=== PATIENT | male | born 1990 | race Caucasian/White ===

== ENCOUNTER → 2019-02-13 | Outpatient (CLI) | payer OTHER, SELFPAY | PROVIDERS: Family Provider Nurse Practitioner Family | DX: M25.571 Pain in right ankle and joints of right foot (principal); R60.0 Localized edema; S93.04XA Dislocation of right ankle joint, initial encounter; X58.XXXA Exposure to other specified factors, initial encounter ==

== ENCOUNTER → 2019-02-22 09:02 | Outpatient (BNVA) | payer OTHER, SELFPAY | PROVIDERS: Family Provider Nurse Practitioner Family; PCP Nurse Practitioner Family; Referring Provider Nurse Practitioner Family; Visit Provider Specialist | DX: M25.579 Pain in unspecified ankle and joints of unspecified foot (principal) | CPT/HCPCS: 73610 ==

== ENCOUNTER 2019-02-22 14:40 | Outpatient (CLI) | payer OTHER, SELFPAY | END 2019-02-22 14:41 | disposition home or self-care (01) | LOC: SPT 14:40 | PROVIDERS: Family Provider Nurse Practitioner Family; PCP Nurse Practitioner Family; Visit Provider Specialist | DX: M25.571 Pain in right ankle and joints of right foot (principal) | CPT/HCPCS: L1902 ==

== ENCOUNTER 2019-02-27 16:08 | Outpatient (RCR) | payer OTHER, SELFPAY | END 2019-03-17 23:59 | disposition home or self-care (01) | LOC: SPT 16:08 | PROVIDERS: Family Provider Nurse Practitioner Family; PCP Nurse Practitioner Family; Referring Provider Specialist; Visit Provider Specialist | DX: S93.401D Sprain of unspecified ligament of right ankle, subsequent encounter (principal); X58.XXXD Exposure to other specified factors, subsequent encounter | CPT/HCPCS: 97110; 97161 ==

== ENCOUNTER 2019-03-18 06:00 | Outpatient (RCR) | payer OTHER, SELFPAY | END 2019-04-15 23:59 | disposition home or self-care (01) | LOC: SPT 06:00 | PROVIDERS: Family Provider Nurse Practitioner Family; PCP Nurse Practitioner Family; Referring Provider Specialist; Visit Provider Specialist | DX: S93.401D Sprain of unspecified ligament of right ankle, subsequent encounter (principal); X58.XXXD Exposure to other specified factors, subsequent encounter | CPT/HCPCS: 97110 ==

== ENCOUNTER 2019-04-16 06:00 | Outpatient (RCR) | payer OTHER, SELFPAY | END 2019-04-16 23:00 | disposition home or self-care (01) | LOC: SPT 06:00 | PROVIDERS: Family Provider Nurse Practitioner Family; PCP Nurse Practitioner Family; Referring Provider Specialist; Visit Provider Specialist | DX: Z01.89 Encounter for other specified special examinations (principal) ==

== ENCOUNTER 2019-09-28 20:22 | Emergency (ER) | payer BC, SELFPAY ==
[2019-09-28 20:30] VITALS: BP 123/71; PULSE 90; RESP 17; TEMP 36.9; O2SAT 98; BMI 28.1
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
[2019-09-28 21:43] VITALS: BP 137/76; PULSE 82; RESP 16; O2SAT 98
[2019-09-28] MEDS: tetanus-diphtheria tox (adult) 0.5 mL SDV IM (21:50)
[2019-09-28] MEDS: lidocaine 2% INJ 20 mL INJECTION (21:55)
[2019-09-28 22:37] VITALS: BP 126/80; PULSE 82; RESP 18; O2SAT 98
== END 2019-09-28 22:25 | disposition home or self-care (01) ==
PROVIDERS: Emergency Provider Physician Assistant; PCP Nurse Practitioner Family
DX: S61.245A Puncture wound with foreign body of left ring finger without damage to nail, initial encounter (principal); W26.8XXA Contact with other sharp object(s), not elsewhere classified, initial encounter; Z23 Encounter for immunization
CPT/HCPCS: 12345; 90471; 90714; 99281; 99282

== ENCOUNTER 2020-10-21 20:11 | Emergency (ER) | payer BC, SELFPAY ==
[2020-10-21 20:26] VITALS: BP 117/76; PULSE 97; RESP 24; TEMP 36.7; O2SAT 98; BMI 28.1
--- NOTE | 2020-10-21 20:28 | XRR_ITS ---
PROCEDURE INFORMATION: Exam: XR Chest Exam date and time: 10/21/2020 8:28 PM Age: 30 years old Clinical indication: Shortness of breath; Additional info: SOB post second covid vaccine TECHNIQUE: Imaging protocol: XR of the chest. Views: 2 views. COMPARISON: CR Chest 2 views* [id number] 03/15/2014 11:02 AM FINDINGS: Lungs: Unremarkable. No consolidation. Pleural spaces: Unremarkable. No pleural effusion. No pneumothorax. Heart/Mediastinum: Unremarkable. No cardiomegaly. Bones/joints: Unremarkable. XR/XR chest 2V* [id number] IMPRESSION: No acute findings.
--- NOTE | 2020-10-21 20:28 | ECG_ITS ---
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 Measurements Intervals [place] Rate: 93 P: 71 [place]: 139 QRS: 77 QRSD: 80 T: 57 QT: 318 QTc: 396 Interpretive Statements SINUS RHYTHM Compared to ECG 03/15/2014 10:57:17 No significant changes Electronically Signed On 10-24-2020 9:07:31 CDT by Marlen Higuera M.D. [email or web address]
[2020-10-21 23:29] VITALS: BP 122/82; PULSE 78; RESP 16; O2SAT 98
--- NOTE | 2020-10-21 23:52 | W.ED.SOB ---
HPI - SOB/Dyspnea General: Chief Complaint: Shortness of Breath/Dyspnea Stated Complaint: SOB post second dose of vaccine Time Seen by Provider: 10/21/20 23:48 Source: patient Mode of arrival: ambulatory Limitations: no limitations History of Present Illness: HPI Narrative: 30-year-old male states that he received his second dose of motor and a Covid vaccine on Wednesday. He states that starting yesterday and earlier today he is having body aches along with general malaise and some shortness of breath. He denies any cough denies any fever but felt febrile. He states that actually over the last hour or 2 hours his symptoms have resolved and he feels much better. He has no complaints at this time. Denies any worsening improving factors. Associated symptoms: Deny abdominal pain, chest pain, nausea or vomiting Review of Systems Const: Reports: chills and body aches Eyes: Denies: blurry vision or eye discomfort ENMT: Denies: throat pain or dental pain Card: Denies: chest pain Resp: Reports: dyspnea GI: Denies: abdominal pain, nausea, vomiting or diarrhea : Denies: dysuria Musc: Denies: neck pain or back pain Skin/Breast: Denies: rash Neuro: Denies: headache(s) Psych: Denies: depression Scar/Lymph: Denies: easy bruising All/Imm: Denies: urticaria [facility] ED PFSH: Medical History (Updated 10/21/20 @ 23:54 by Tyshawn Murrell MD) Closed avulsion fracture of medial malleolus of right tibia Sprain of ligament of right ankle Physical Exam Const: COMMON NORMALS: no acute distress, patient oriented x3 and healthy appearing HENMT: COMMON NORMALS: normocephalic and atraumatic HEAD & SCALP: normocephalic and atraumatic Eye: COMMON NORMALS: Equal, round and reactive pupils present and EOMs intact bilaterally PUPIL: Yes Equal, round and reactive pupils present Neck/C-Spine: COMMON NORMALS: full ROM and supple Chest: COMMONS NORMALS: normal inspection of the chest and normal palpation of entire chest wall Resp: COMMON NORMALS: normal respiratory effort, No retractions, No use of accessory muscles and clear to auscultation bilaterally AUSCULTATION: clear to auscultation bilaterally Cardio: COMMON NORMALS: regular rate, regular rhythm and No murmurs present (Cardio) RATE: regular rate RHYTHM: regular rhythm GI: COMMON NORMALS: Normal to inspection, nondistended, normoactive bowel sounds present, Soft to palpation, non-tender and no masses PALPATION: Yes Soft to palpation Extremity: COMMON NORMALS: normal to inspection and full ROM Neuro: COMMON NORMALS: patient oriented x3, moves all extremities and no focal motor deficits Psych: COMMON NORMALS: mental status grossly normal, Normal thought process present and cooperative THOUGHT PROCESS: Normal thought process present Skin: COMMON NORMALS: no rashes or lesions noted and no wounds GENERAL SKIN EXAM: no rashes or lesions noted Course Vital Signs: Vital signs: Vital Signs Temperature 98.1 F 10/21/20 20:26 Pulse Rate 97 10/21/20 20:26 Respiratory Rate 24 H 10/21/20 20:26 Blood Pressure 117/76 10/21/20 20:26 Pulse Oximetry 98 10/21/20 20:26 MDM - SOB/Dyspnea MDM Narrative: Medical decision making narrative: Patient presents with body aches, dyspnea after his second dose of [place]ater[place] vaccine. Patient states that he was feeling unwell earlier today and on Wednesday states that actually now symptoms of all resolved. He states he does not feel short of breath has no pain no fever. EKG and x-ray here are normal. I feel he needs no lab work since his symptoms are resolved and he is stable for discharge and return if worsening. Imaging Data^: CXR: Radiologist's impression: [address] [address] XRay Report Signed Patient: Dago Us Unit #: [id number] : 1990 Age/Sex: 30 / M ADM Date: 10/21/20 Loc: ER Room/Bed: Attending Dr: Ordering Provider/Ordering MD: Tyshawn Murrell MD Date of Service: 10/21/20 Procedure(s): XR chest 2V* [id number] Accession Number(s): [id number] Report Number: [id number] PROCEDURE INFORMATION: Exam: XR Chest Exam date and time: 10/21/2020 8:28 PM Age: 30 years old Clinical indication: Shortness of breath; Additional info: SOB post second covid vaccine TECHNIQUE: Imaging protocol: XR of the chest. Views: 2 views. COMPARISON: CR Chest 2 views* [id number] 03/15/2014 11:02 AM FINDINGS: Lungs: Unremarkable. No consolidation. Pleural spaces: Unremarkable. No pleural effusion. No pneumothorax. Heart/Mediastinum: Unremarkable. No cardiomegaly. Bones/joints: Unremarkable. XR/XR chest 2V* [id number] IMPRESSION: No acute findings. Dictated By: Aftab Davey MD Signed By: Aftab Davey MD Signed Date/Time: 10/21/20 2100 EKG Data^: EKG 1: Attestation: I personally reviewed and interpreted this EKG as follows: EKG Interpretation Date: 10/21/20 EKG interpretation time: 20:35 Interpretation: nsr hr [address] or t wave abnormalities qrs 80 qtc 369 Discharge Plan Discharge Patient Disposition: Home Clinical Impression: Body aches after vaccination Dyspnea Qualifiers: Dyspnea type: unspecified Qualified Code(s): R06.00 - Dyspnea, unspecified Condition: Stable Prescriptions: No Action Collette Back and Body 500-32.5 mg Tablet 2 tab PO PRN RF: 0 Discharge Orders: Discharge ED (Routine); Ordered 10/21/20 Ordered By: Tyshawn Murrell Discharge Diet: Advance as tolerated Discharge Activity: Resume usual activity Patient Instructions: Dyspnea (ED), Opioid Safety Coding Level of Care Code ED Health Administrator for Chg Fwd Exam Comprehensive
[2020-10-22 00:36] VITALS: BP 121/71; PULSE 69; RESP 20; O2SAT 99
== END 2020-10-22 00:32 | disposition home or self-care (01) ==
PROVIDERS: Emergency Provider Emergency Medicine
DX: R06.00 Dyspnea, unspecified (principal); R52 Pain, unspecified; T50.B95A Adverse effect of other viral vaccines, initial encounter
CPT/HCPCS: 71046; 93005; 99282

== ENCOUNTER → 2020-10-22 15:33 | Outpatient (BNVA) | payer BC, SELFPAY | PROVIDERS: Visit Provider Nurse Practitioner Family | DX: Z20.822 Contact with and (suspected) exposure to COVID-19 (principal) | CPT/HCPCS: 87635 ==

== ENCOUNTER → 2021-03-10 19:08 | Outpatient (BNVA) | payer BC, SELFPAY | PROVIDERS: Visit Provider Registered Nurse Neonatal Intensive Care | DX: Z20.822 Contact with and (suspected) exposure to COVID-19 (principal) | CPT/HCPCS: 87635 ==

== ENCOUNTER → 2021-03-13 17:14 | Outpatient (BNVA) | payer BC, SELFPAY | PROVIDERS: Visit Provider Nurse Practitioner | DX: J02.9 Acute pharyngitis, unspecified (principal) | CPT/HCPCS: 87880 ==

== ENCOUNTER 2022-09-08 19:13 | Emergency (ER) | payer SELFPAY ==
[2022-09-08 19:46] VITALS: PULSE 109; RESP 16; TEMP 36.6; O2SAT 96; BMI 26.6
[2022-09-08] MEDS: tetracaine 0.5% Op Soln 4 mL Btl 1 DROP EYE-BOTH (20:56)
--- NOTE | 2022-09-08 21:02 | ED_ITS ---
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 Patient admits he believes he has Welders burn. Patient appears in mild to moderate discomfort. Patient appears nontoxic. Patient reports no other medical problems. Patient reports tetanus is up-to-date. Associated symptoms: Denies fever(s) Review of Systems Const: Denies: fever(s) Eyes: Reports: eye discomfort [facility] ED PFSH: Medical History (Updated 09/08/22 @ 21:04 by CAT Hernandez) Acute bronchitis and bronchiolitis Closed avulsion fracture of medial malleolus of right tibia Smoker Sprain of ligament of right ankle Family History (Updated 02/10/22 @ 09:27 by Janie Andrea LPN) Father No problems noted. Mother Cancer Social History (Updated 02/10/22 @ 09:27 by Janie Andrea LPN) Smoking and tobacco status: current every day smoker cigarettes Quit status (tobacco): not considering quitting Second hand smoke exposure: No Smoking risk assessment/counseling performed?: No Alcohol intake: current Alcohol intake frequency: holidays/special occasions only Alcohol type: hard liquor Desire information about alcohol rehabilitation?: No Counseling given: No Substance/Drug Use: never Desire information about substance/drug rehabilitation?: No Counseling given: No Physical Exam Const: COMMON NORMALS: alert HENMT: COMMON NORMALS: normocephalic HEAD & SCALP: normocephalic Eye: COMMON NORMALS: Equal, round and reactive pupils present VISUAL ACUITY: Yes acuity normal CONJUNCTIVA: Yes conjunctival abnormal positive bilateral conjunctival injection SCLERA: scleral abnormal Laterality of scleral abnormality: positive bilateral scleral injection CORNEA: Yes corneas normal PUPIL: Yes Equal, round and reactive pupils present EOM: Yes EOM abnormal Resp: COMMON NORMALS: normal respiratory effort Cardio: COMMON NORMALS: regular rate RATE: regular rate Extremity: COMMON NORMALS: full ROM Neuro: SENSORIUM/ORIENTATION: Yes alert Skin: COMMON NORMALS: turgor normal GENERAL SKIN EXAM: turgor normal Course Vital Signs: Vital signs: Vital Signs Temperature 97.9 F 09/08/22 19:46 Pulse Rate 109 H 09/08/22 19:46 Respiratory Rate 16 09/08/22 19:46 Pulse Oximetry 96 09/08/22 19:46 Oxygen Delivery Me thod Room Air 09/08/22 19:46 MDM - Eye Problem Medical Decision Making 32-year-old male patient comes in today with complaints of Welders burn to the eyes. On exam patient has normal cornea with injection of the conjunctiva and sclera. Patient was administered tetracaine drops with relief of pain and discomfort. Differential diagnosis includes Welders keratitis, foreign body, corneal abrasion. No signs of severe injury is noted. Patient will be maintained pain control with tetracaine for the next 48 hours, and patient was started on TobraDex eyedrops for recovery and healing. Patient reported understanding of care plan and need for follow-up or return to the ER. Discharge Plan Discharge Patient Disposition: Home Clinical Impression: Welders' keratitis of both eyes Condition: Stable Prescriptions: No Action azithromycin 250 mg tablet See Rx Instructions PO .COMPLEX Qty: 6 0RF Rx Instructions: For 250 mg dose pack: take 500 mg today (day 1), then 250 mg for 4 days (days 2-5) PO benzonatate 200 mg capsule 200 mg PO TID PRN (Reason: cough) Qty: 20 0RF chlorpheniramine-dextromethorp 4-30 mg tablet 1 tab PO Q6H PRN (Reason: cough) Qty: 20 0RF fluticasone propionate [Flonase Allergy Relief] 50 mcg/actuation spray,suspension 2 spray intranasal BID Qty: 16 0RF Rx Instructions: administer into each nostril Discharge Orders: Discharge ED (Routine); Ordered 09/08/22 Ordered By: Prasanth Rogel Discharge Diet: Usual diet Discharge Activity: Increase activity as tolerated Patient Instructions: Corneal Flash Smith (ED) Activity Restrictions/Additional Instructions: Use pain eyedrops 1 drop every 1-3 hours as needed for pain. Do not use the pain drops for longer than 2 days. Use antibiotic with steroid eyedrops 2 drops to both eyes 4 times a day while awake. Use antibiotic eyedrops for at least 5 days. Follow-up with primary care in 2 to 3 days for recheck. Return to ED for new concerns. Coding Level of Care Code ED Market Risk Manager for Ajay Odonnell
[2022-09-08] MEDS: tobramycin-dexametha Op Susp 5 mL Btl 2 DROP EYE-BOTH (21:22)
== END 2022-09-08 21:27 | disposition home or self-care (01) ==
PROVIDERS: Emergency Provider Nurse Practitioner Family
DX: H16.133 Photokeratitis, bilateral (principal); W89.8XXA Exposure to other man-made visible and ultraviolet light, initial encounter; F17.210 Nicotine dependence, cigarettes, uncomplicated
CPT/HCPCS: 99283

== ENCOUNTER 2024-02-04 13:23 | Emergency (ER) | payer SELFPAY ==
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
[2024-02-04 14:39] VITALS: BP 142/84; PULSE 71; RESP 17; TEMP 36.9; O2SAT 100; BMI 28.1
--- NOTE | 2024-02-04 14:46 | XRR_ITS ---
PROCEDURE INFORMATION: Exam: XR Cervical Spine Exam date and time: 02/04/2024 2:52 PM Age: 33 years old Clinical indication: Neck pain TECHNIQUE: Imaging protocol: Radiologic exam of the cervical spine. Views: 2 or 3 views. COMPARISON: CR XR chest 2V* [id number] 10/21/2020 8:47 PM FINDINGS: Bones/joints: Normal anatomic alignment. Vertebral body heights are well preserved. Preserved intervertebral disc spaces. The spinal canal is patent. Atlantoaxial articulation is normal. No acutely displaced fractures. No joint dislocation. No aggressive osseous lesions. Soft tissues: The prevertebral soft tissues are normal. No acute soft tissue findings. Airway: Airways are patent. Lungs: The visualized portions of the lung apices are normal. XR/XR cervical spine 3V* [id number] IMPRESSION: No acute fracture or dislocation.
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
[2024-02-04 16:05] LABS: Basophils # 0.1 10^3/uL (0.0-0.1); Basophils % 0.9 %; Eosinophils # 0.4 10^3/uL (0.0-0.8); Eosinophils % 5.1 %; Hematocrit 46.8 % (37-53); Lymphocytes # 3.4 10^3/uL (0.8-4.8); Lymphocytes % 39.6 %; Mean Corpuscular HGB Conc 34.2 g/dL (30-55); Mean Corpuscular Hemoglobin 30.1 pg (27-33); Mean Corpuscular Volume 88.1 fl (82-101); Mean Platelet Volume 10.4 fL (7.4-10.4); Monocytes # 0.5 10^3/uL (0.2-0.9); Monocytes % 5.9 %; Neutrophils # 4.16 10^3/uL (1.8-7.7); Neutrophils % 48.3 %; Nucleated Red Blood Cells % 0 %; Platelet Count 262 10^3/cmm (157-399); Red Blood Count 5.31 10^6/uL (3.85-5.65); Red Cell Distribution Width 12.2 % (12.1-15.1); White Blood Count 8.63 10^3/uL (3.29-11.43)
[2024-02-04 16:19] LABS: Alanine Aminotransferase 33 U/L (0-41); Albumin Level 4.4 g/dL (3.5-5.2); Alkaline Phosphatase 114 U/L (40-130); Anion Gap 17.2 (5-19); Aspartate Amino Transferase 26 U/L (0-40); Blood Urea Nitrogen 12 mg/dL (6-20); Calcium 9.1 mg/dL (8.5-10.5); Carbon Dioxide 23 mmol/L (22-29); Chloride 103 mmol/L (98-107); Creatinine Clr Calc Pharmacy 119.4153; Globulin 2.4 g/dL (1.3-4.6); Glomerular Filtration Rate 97.2 mL/min (90-130); Glucose 88 mg/dL (65-115); Osmolality Calculated 287 mOsm/kg (285-295); Potassium 4.2 mmol/L (3.5-5.1); Sodium 139 mmol/L (136-145); Total Bilirubin 0.6 mg/dL (0.15-1.2); Total Protein 6.8 g/dL (6.6-8.7)
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
[2024-02-04 18:14] VITALS: BP 131/87; PULSE 87; O2SAT 100
== END 2024-02-04 18:14 | disposition home or self-care (01) ==
PROVIDERS: Family Medicine; Emergency Provider Emergency Medicine
DX: M79.18 Myalgia, other site (principal); V89.2XXA Person injured in unspecified motor-vehicle accident, traffic, initial encounter; F17.210 Nicotine dependence, cigarettes, uncomplicated
CPT/HCPCS: 72040; 73130; 80053; 85025; 99284

== ENCOUNTER 2024-06-27 19:34 | Emergency (ER) | payer SELFPAY ==
--- NOTE | 2024-06-27 19:34 | XRR_ITS ---
PROCEDURE INFORMATION: Exam: XR Left Hand Exam date and time: 06/27/2024 7:41 PM Age: 33 years old Clinical indication: Pain; Finger(s); Left; Additional info: Injury TECHNIQUE: Imaging protocol: Radiologic exam of the left hand. Views: 3 or more views. COMPARISON: No relevant prior studies available. FINDINGS: Bones/joints: No definite acute fracture or dislocation. Soft tissues: Linear radiopaque density likely related to a foreign body within the palmar and lateral aspect of the soft tissues adjacent to the 2nd proximal phalanx. Overlying soft tissue swelling. XR/XR hand LT min 3V* [id number] IMPRESSION: As above.
[2024-06-27 19:35] VITALS: BP 143/87; PULSE 76; RESP 16; TEMP 36.3; O2SAT 99; BMI 28.1
--- NOTE | 2024-06-27 20:14 | W.ED.EXTPRO ---
HPI - Extremity Problem General: Chief complaint: Extremity Injury, Upper Stated complaint: L index finger pain Time Seen by Provider: 06/27/24 20:01 Source: patient Mode of arrival: ambulatory Limitations: no limitations History of Present Illness: 33-year-old male states he had injured his finger with a precision jig grinder 2 years ago he saw his had some swelling at the point of his had increased swelling and redness over the last few days he has some slight pain denies any drainage denies any worse improving factors. Associated symptoms: Deny chest pain, fever(s) or rash Related Data Previous Rx's ?Medication ?Instructions ?Recorded azithromycin 250 mg tablet See Rx Instructions PO .COMPLEX #6 02/10/22 tabs benzonatate 200 mg capsule 200 mg PO TID PRN cough #20 caps 02/10/22 chlorpheniramine-dextromethorphan 1 tab PO Q6H PRN cough #20 tabs 02/10/22 4 mg-30 mg tablet fluticasone propionate 50 2 spray intranasal BID #16 grams 02/10/22 mcg/actuation nasal spray,suspension (Flonase Allergy Relief) sulfamethoxazole 800 1 tab PO BID 10 days #20 tabs 06/27/24 mg-trimethoprim 160 mg tablet (Bactrim DS) Allergies Allergy/AdvReac Type Severity Reaction Status Date / Time No Known Allergies Allergy Verified 09/08/22 19:46 Review of Systems Const: Denies: fever(s), chills, body aches or change in appetite ENMT: Denies: throat pain or dental pain Card: Denies: chest pain Resp: Denies: dyspnea GI: Denies: abdominal pain, nausea, vomiting or diarrhea Musc: Reports: extremity pain; Denies: neck pain or back pain Skin/Breast: Denies: rash Neuro: Denies: headache(s) PFSH ED PFSH: Medical History Smoker Acute bronchitis and bronchiolitis Closed avulsion fracture of medial malleolus of right tibia Sprain of ligament of right ankle Family History Father No problems noted. Mother Cancer Social History Smoking and tobacco/nicotine status: current every day tobacco/nicotine user cigarettes Quit status (tobacco/nicotine): not considering quitting Second hand smoke exposure: No Alcohol intake: current Alcohol intake frequency: holidays/special occasions only Alcohol type: hard liquor Substance/Drug Use: never Physical Exam Const: COMMON NORMALS: no acute distress, patient oriented x3 and healthy appearing HENMT: COMMON NORMALS: normocephalic and atraumatic HEAD & SCALP: normocephalic and atraumatic Eye: COMMON NORMALS: conjunctivae normal CONJUNCTIVA: Yes conjunctivae normal Neck/C-Spine: COMMON NORMALS: full ROM and supple Chest: COMMONS NORMALS: normal inspection of the chest Extremity: COMMON NORMALS: full ROM Neuro: COMMON NORMALS: patient oriented x3, moves all extremities and no focal motor deficits Psych: COMMON NORMALS: mental status grossly normal, Normal thought process present and cooperative THOUGHT PROCESS: Normal thought process present Skin: COMMON NORMALS: no rashes or lesions noted NARRATIVE SKIN EXAM: Swelling over the PIP joint of radial aspect of index finger with likely abscess GENERAL SKIN EXAM: no rashes or lesions noted Procedures Abscess I/D Site: hand Side (if applicable): left Local Anesthetic: bupivacaine 0.5% Amount of anesthesia used (mL): 10 Technique: incised with #11 blade Packing used?: none Course Vital Signs: Vital signs: Vital Signs Temperature 97.4 F L 06/27/24 19:35 Pulse Rate 76 06/27/24 19:35 Respiratory Rate 16 06/27/24 19:35 Blood Pressure 143/87 06/27/24 19:35 Pulse Oximetry 99 06/27/24 19:35 Oxygen Delivery Me thod Room Air 06/27/24 19:35 MDM - Extremity (Nontraumatic) Medical Decision Making Patient presents for an abscess to his index finger did incise and drain the abscess with some purulent drainage she does have foreign body noted on the x-ray was not able to remove the foreign body will give him follow-up orthopedics will start him on antibiotics. All radiology interpretation(s) finalized by discharge Discharge Plan Discharge Patient Disposition: Home Clinical Impression: Abscess, Foreign body finger Condition: Stable Prescriptions: New sulfamethoxazole-trimethoprim [Bactrim DS] 800-160 mg tablet 1 tab PO BID 10 Days Qty: 20 0RF No Action azithromycin 250 mg tablet See Rx Instructions PO .COMPLEX Qty: 6 0RF Rx Instructions: For 250 mg dose pack: take 500 mg today (day 1), then 250 mg for 4 days (days 2-5) PO benzonatate 200 mg capsule 200 mg PO TID PRN (Reason: cough) Qty: 20 0RF chlorpheniramine-dextromethorp 4-30 mg tablet 1 tab PO Q6H PRN (Reason: cough) Qty: 20 0RF fluticasone propionate [Flonase Allergy Relief] 50 mcg/actuation spray,suspension 2 spray intranasal BID Qty: 16 0RF Rx Instructions: administer into each nostril Discharge Orders: Discharge ED (Routine); Ordered 06/27/24 Ordered By: Tyshawn Murrell Discharge Diet: Advance as tolerated Discharge Activity: Resume usual activity Patient Instructions: Soft Tissue Foreign Body (ED), Abscess (ED) Print Language: Yakut Coding Level of Care Code ED Security Supervisor for Ajay Odonnell
--- NOTE | 2024-06-28 07:23 | DCPLANNER ---
Message sent to Ortho for referral-Patient presents for an abscess to his index finger did incise and drain the abscess with some purulent drainage she does have foreign body noted on the x-ray was not able to remove the foreign body will give him follow-up orthopedics will start him on antibiotics. All radiology interpretation(s) finalized by discharge
== END 2024-06-27 20:26 | disposition home or self-care (01) ==
PROVIDERS: Emergency Provider Emergency Medicine
DX: L02.512 Cutaneous abscess of left hand (principal); S60.451A Superficial foreign body of left index finger, initial encounter; X58.XXXA Exposure to other specified factors, initial encounter; F17.210 Nicotine dependence, cigarettes, uncomplicated
CPT/HCPCS: 26010; 73130; 99284; 99291

== ENCOUNTER 2024-07-23 10:05 | Emergency (ER) | payer SELFPAY ==
[2024-07-23 10:18] VITALS: BP 125/78; PULSE 105; RESP 17; TEMP 36.7; O2SAT 97; BMI 29.0
[2024-07-23 11:12] VITALS: BP 127/81; PULSE 91; RESP 18; O2SAT 99
--- NOTE | 2024-07-23 11:17 | ED_ITS ---
HPI - Back Pain/Injury General: Chief Complaint: Back Pain/Injury Stated Complaint: back pain Time Seen by Provider: 07/23/24 11:07 Source: patient Mode of arrival: ambulatory Limitations: no limitations History of Present Illness: 33-year-old who has a history of back is sues in the past and over the last few days been having right lower back pain. States pain is progressively worsens currently an 8 out of 10 much worse with movement denies any bowel or bladder incontinence. Denies any specific injury Associated symptoms: Deny abdominal pain, chills, fever(s), nausea or vomiting Related Data Previous Rx's ?Medication ?Instructions ?Recorded azithromycin 250 mg tablet See Rx Instructions PO .COM PLEX #6 02/10/22 tabs benzonatate 200 mg capsule 200 mg PO TID PRN cough #20 caps 02/10/22 chlorpheniramine-dextromethorphan 1 tab PO Q6H PRN cou gh #20 tabs 02/10/22 4 mg-30 mg tablet fluticasone propionate 50 2 spray intranasal BID #16 g amarilis 02/10/22 mcg/actuation nasal spray,suspension (Flonase Allergy Relief) methocarbamol 750 mg tablet 750 mg PO Q6H PRN spasms # 20 tabs 07/23/24 naproxen 500 mg tablet (Naprosyn) 500 mg PO BID PRN pa in #20 tabs 07/23/24 Allergies Allergy/AdvReac Type Severity Reaction Status Date / Time No Known Allergies Allergy Verified 06/29/24 11:33 Review of Systems Const: Denies: fever(s), chills, body aches or change in appetite ENMT: Denies: throat pain or dental pain Card: Denies: chest pain Resp: Denies: dyspnea GI: Denies: abdominal pain, nausea, vomiting or diarrhea Musc: Reports: back pain; Denies: neck pain Skin/Breast: Denies: rash Neuro: Denies: headache(s) PFSH ED PFSH: Medical History Smoker Acute bronchitis and bronchiolitis Closed avulsion fracture of medial malleolus of right tibia Sprain of ligament of right ankle Family History Father No problems noted. Mother Cancer Social History Smoking and tobacco/nicotine status: current every day tobacco/nicotine user cigarettes Quit status (tobacco/nicotine): not considering quitting Second hand smoke exposure: No Alcohol intake: current Alcohol intake frequency: holidays/special occasions only Alcohol type: hard liquor Substance/Drug Use: never Physical Exam Const: COMMON NORMALS: no acute distress, patient oriented x3 and healthy appearing HENMT: COMMON NORMALS: normocephalic and atraumatic HEAD & SCALP: normocephalic and atraumatic Eye: COMMON NORMALS: conjunctivae normal CONJUNCTIVA: Yes conjunctivae normal Neck/C-Spine: COMMON NORMALS: full ROM and supple Chest: COMMONS NORMALS: normal inspection of the chest Resp: COMMON NORMALS: normal respiratory effort Cardio: COMMON NORMALS: regular rate RATE: regular rate GI: COMMON NORMALS: Normal to inspection, nondistended, normoactive bowel sounds present, Soft to palpation, non-tender and no masses PALPATION: Yes Soft to palpation Back/Pelvis: OTHER: Tenderness to right lower back no midline tenderness no saddle anesthesia Extremity: COMMON NORMALS: normal to inspection and full ROM Neuro: COMMON NORMALS: patient oriented x3, moves all extremities and no focal motor deficits Psych: COMMON NORMALS: mental status grossly normal, Normal thought process present and cooperative THOUGHT PROCESS: Normal thought process present Skin: COMMON NORMALS: no rashes or lesions noted and no wounds GENERAL SKIN EXAM: no rashes or lesions noted Course Vital Signs: Vital signs: Vital Signs Temperature 98.0 F 07/23/24 10:18 Pulse Rate 91 07/23/24 11:12 Respiratory Rate 18 07/23/24 11:12 Blood Pressure 127/81 07/23/24 11:12 Pulse Oximetry 99 07/23/24 11:12 Oxygen Delivery Me thod Room Air 07/23/24 11:12 MDM - Back Pain/Injury Medical Decision Making Patient presents with back pain likely muscular in nature no signs of epidural abscess or cord compression he is ambulatory stable for discharge. No radiology studies performed this visit Discharge Plan Discharge Patient Disposition: Home Clinical Impression: Low back pain Condition: Stable Prescriptions: New methocarbamol 750 mg tablet 750 mg PO Q6H PRN (Reason: spasms) Qty: 20 0RF naproxen [Naprosyn] 500 mg tablet 500 mg PO BID PRN (Reason: pain) Qty: 20 0RF No Action azithromycin 250 mg tablet See Rx Instructions PO .COMPLEX Qty: 6 0RF Rx Instructions: For 250 mg dose pack: take 500 mg today (day 1), then 250 mg for 4 days (days 2-5) PO benzonatate 200 mg capsule 200 mg PO TID PRN (Reason: cough) Qty: 20 0RF chlorpheniramine-dextromethorp 4-30 mg tablet 1 tab PO Q6H PRN (Reason: cough) Qty: 20 0RF fluticasone propionate [Flonase Allergy Relief] 50 mcg/actuation spray,suspension 2 spray intranasal BID Qty: 16 0RF Rx Instructions: administer into each nostril Discharge Orders: Discharge ED (Routine); Ordered 07/23/24 Ordered By: Tyshawn Murrell Discharge Diet: Advance as tolerated Discharge Activity: Resume usual activity Patient Instructions: Back Pain (ED) Print Language: Bulgarian Coding Level of Care Code ED Butter Liquefier for Ajay Odonnell
[2024-07-23] MEDS: methocarbamol 750 mg Tablet 1500 MG PO (11:30)
[2024-07-23] MEDS: HYDROcodone-acetaminophen 7.5-325 mg Tablet 1 TAB PO (11:30)
[2024-07-23] MEDS: dexamethasone 10 mg/mL INJ IM (11:31)
[2024-07-23] MEDS: ketorolac 60 mg/2 mL INJ IM (11:31)
[2024-07-23 11:52] VITALS: BP 134/88; PULSE 68; O2SAT 98
--- NOTE | 2024-07-24 07:38 | DCPLANNER ---
messaged ortho for er f/u
== END 2024-07-23 11:55 | disposition home or self-care (01) ==
PROVIDERS: Emergency Provider Emergency Medicine
DX: M54.50 Low back pain, unspecified (principal); F17.210 Nicotine dependence, cigarettes, uncomplicated
CPT/HCPCS: 96372; 99284; J1100; J1885; J9999

== ENCOUNTER → 2024-08-03 10:45 | Outpatient (BNVA) | payer SELFPAY | PROVIDERS: Referring Provider Emergency Medicine; Visit Provider Orthopaedic Surgery | DX: M54.9 Dorsalgia, unspecified (principal); M54.41 Lumbago with sciatica, right side | CPT/HCPCS: 72110 ==